=== PATIENT | female | born 1960 | race Caucasian/White ===

== ENCOUNTER 2016-11-17 06:58 | Emergency (ER) | payer MEDICARE, MEDICAID ==
[2016-11-17] MEDS ORDERED: 0.9 % SODIUM CHLORIDE 1000ML 1,000 ML IV SCH (07:00)
--- NOTE | 2016-11-17 07:06 | Emergency Department Record ---
History of Present Illness - General Chief Complaint: Shortness of breath Stated Complaint: TAL Time Seen by Provider: 11/17/16 07:00 Source: Patient, EMS Mode of Arrival: EMS Limitations: No limitations - History of Present Illness Initial Comments: 56 yo female presents to ED with a CC of difficulty breathing that began last night, reports wheezing with a history of COPD. Patient reports that she ran out of her albuterol last night, has not been on steroids recently. Patient denies fevers, chills, or productive cough symptoms. Patient denies fevers, chills, or recent illness. Patient received duoneb and solumedrol [employer]. MD Complaint: Anxiety, Shortness of breath Onset/Timin -: Days(s) Severity: Moderate Consistency: Intermittent Improves With: Bronchodilators Worsens With: Exertion Known History Of: COPD Treatments Prior to Arrival: Bronchodilator, Other (IV solumedrol) - Related Data Home Oxygen Therapy: Yes Home Oxygen Amount: 3 Liters Home Medications Medication Instructions Recorded Confirmed Last Taken Ascorbic Acid [Vitamin C] 500 mg PO ASDIR 08/14/15 05/20/16 Unknown Cholecalciferol (Vitamin D3) 2,000 unit PO DAILY cap 08/14/15 05/20/16 Unknown [Vitamin D3] Mv,Calcium,Min/Iron/Folic/Vitk 1 each PO DAILY tab 08/14/15 05/20/16 Unknown [Multi For Her Tablet] Acetaminophen [Tylenol Extra 1,000 mg PO DAILY tab 09/30/15 05/20/16 Unknown Strength] Diphenhydramine HCl [Benadryl] 25 mg PO ASDIR cap 09/30/15 05/20/16 Unknown Previous Rx's Medication Instructions Recorded Prednisone [Prednisone 20Mg] 20 mg PO TID #15 tab 11/17/16 Allergies Allergy/AdvReac Type Severity Reaction Status Date / Time No Known Drug Allergies Allergy Unverified 06/26/16 15:02 Review of Systems Constitutional: Denies: Chills, Fever, Malaise, Night sweats Eyes: Denies: Eye discharge, Eye pain ENT: Denies: Congestion, Ear pain, Epistaxis Respiratory: Reports: Cough, Dyspnea, Wheezes Cardiovascular: Reports: Dyspnea on exertion. Denies: Chest pain Endocrine: Denies: Fatigue, Heat or cold intolerance Gastrointestinal: Denies: Abdominal pain, Nausea, Vomiting Genitourinary: Denies: Dysuria, Frequency Musculoskeletal: Denies: Arthralgia, Back pain Skin: Denies: Bruising, Change in color Neurological: Denies: Abnormal gait, Confusion, Headache, Seizure Psychiatric: Reports: Anxiety Hematological/Lymphatic: Denies: Anemia, Blood Clots Past Medical History - SOCIAL HISTORY Smoking Status: Former smoker - RESPIRATORY Hx Respiratory Disorders: Yes Hx Bronchitis: Yes (currently) Hx COPD: Yes Hx Dyspnea: Yes - CARDIOVASCULAR Hx Cardio Disorders: Yes Hx Hypertension: Yes - NEURO Hx Neuro Disorders: Yes Hx Headaches: Yes - GI Hx GI Disorders: Yes Hx Abdominal Pain: Yes Hx Reflux: Yes Hx Irritable Bowel: Yes - Hx Genitourinary Disorders: No Comment:: stress incont. - ENDOCRINE Hx Endocrine Disorders: No Hx Diabetes: No Hx Thyroid Disease: No - MUSCULOSKELETAL Hx Musculoskeletal Disorders: No - PSYCH Hx Psych Problems: Yes Hx Anxiety: Yes Hx Depression: Yes - HEMATOLOGY/ONCOLOGY Hx Hematology/Oncology Disorders: No Family Medical History Family Hx Comment (NOT TO BE USED IN PLACE OF ITEMS BELOW): Migraines. Thyroid - Siblings Hx HTN: Father Hx Resp Disorders: Father, Grandparents Physical Exam - General General Appearance: Alert, Oriented x3, Cooperative, Anxious Limitations: No limitations - Head Head exam: Atraumatic, Normocephalic, Normal inspection Head exam detail: negative: Abrasion, Contusion, Holland's sign, General tenderness, Hematoma, Laceration - Eye Eye exam: Normal appearance. negative: Conjunctival injection, Periorbital swelling, Periorbital tenderness, Scleral icterus - ENT Ear exam: negative: Auricular hematoma, Auricular trauma Nasal Exam: negative: Active bleeding, Discharge, Dried blood, Foreign body Mouth exam: negative: Drooling, Laceration, Muffled voice, Tongue elevation - Neck Neck exam: Normal inspection. negative: Meningismus, Tenderness - Respiratory Respiratory exam: Respiratory distress, Wheezes (very mild wheezes bilaterally) . negative: Rales, Rhonchi, Stridor - Cardiovascular Cardiovascular Exam: Regular rate, Normal rhythm, Normal heart sounds - GI/Abdominal GI/Abdominal exam: Soft. negative: Rebound, Rigid, Tenderness - Rectal Rectal exam: Deferred - exam: Deferred - Extremities Extremities exam: Normal inspection. negative: Pedal edema, Tenderness - Back Back exam: Denies: CVA tenderness (R), CVA tenderness (L) - Neurological Neurological exam: Alert, Normal gait, Oriented X3 - Psychiatric Psychiatric exam: Normal affect, Normal mood - Skin Skin exam: Normal color. negative: Abrasion Type of lesion: negative: abrasion Course - Reevaluation(s) Reevaluation #1: 11/17/16 07:24 EKG: Diffuse artifact present, NSR 95 Normal axis, normal intervals Q waves V1, V2, no acute ST-T wave changes are present. Reevaluation #2: 11/17/16 07:42 Labs reviewed, WBC 18.3 with 87% Neutrophils, Potassium 2.7 (K-lyte ordered), CO2 34.8. Labs are otherwise grossly unremarkable for an acute process. Reevaluation #3: 11/17/16 08:35 CXR pending. Patient reassessed, currently sleeping; pulse 80's, biox 100% on her baseline 3L NC. Awaiting radiology interpretation. Reevaluation #4: 11/17/16 08:50 CXR: Findings c/w COPD, nothing acute. Patient was updated on all results, patient is resting comfortably, and appears stable for discharge at this time. Medical Decision Making - Lab Data Result diagrams: 11/17/16 07:04 11/17/16 07:04 Disposition Disposition: Discharge Clinical Impression: Chronic obstructive pulmonary disease with acute exacerbation, Hypokalemia Disposition: Home, Self-Care Condition: (2) Stable Instructions: Dyspnea (ED) Additional Instructions: Return to ED if your symptoms worsen or if you have any concerns. Prednisone as directed. Follow-up with you family doctor in 3-5 days as directed. Prescriptions: Prednisone [Prednisone 20Mg] 20 mg PO TID #15 tab Forms: Patient Portal Access Time of Disposition: 08:38
[2016-11-17 07:11] LABS: HEMATOCRIT 44.6 % (35.0-47.0); HEMOGLOBIN 14.2 gm/dl (11.6-16.0); MEAN CELL VOLUME 103.2 fl (81-97); MEAN CORPUSCULAR HEMOGLOBIN 32.9 pg (27-33); MEAN CORPUSCULAR HGB CONC 31.8 g/dl (32-36); MEAN PLATELET VOLUME 8.6 fl (7.4-10.4); PLATELET COUNT 471 K/uL (130-400); RED BLOOD COUNT 4.32 M/uL (3.80-5.40); RED CELL DISTRIBUTION WIDTH 13.2 % (11.5-14.5); WHITE BLOOD COUNT W/O DIFF 18.3 K/uL (4.2-12.2)
[2016-11-17 07:23] LABS: ALB/GLOB RATIO 1.2 (1.1-1.8); ALBUMIN 3.8 gm/dL (3.5-5.0); ALKALINE PHOSPHATASE 115 U/L (38-126); ALT/SGPT 25 U/L (9-52); ANION GAP 7.2 (7-16); AST/SGOT 36 U/L (14-36); BLOOD UREA NITROGEN 6 mg/dL (7-17); CARBON DIOXIDE 34.8 mmol/L (22-30); CREATININE 0.5 mg/dL (0.52-1.04); EST GLOMERULAR FILTRATION RATE > 60 ml/min; GLUCOSE,RANDOM 132 mg/dL (70-110)
[2016-11-17] MEDS ORDERED: POTASSIUM BICARB./CIT AC 25 MEQ EFF.TAB PO STA (07:42)
[2016-11-17] MEDS ORDERED: IPRATROPIUM/ALBUTEROL (0.5MG/3MG) NEB INH ONE (10:47)
[2016-11-17] MEDS ORDERED: ACETAMINOPHEN 325 MG TAB PO ONE (12:51)
--- NOTE | 2016-11-20 09:13 | RADIOLOGY REPORT ---
EXAM: CHEST, TWO VIEWS HISTORY: ACUTE DIFFICULTY BREATHING, LOSS OF URINARY BLADDER CONTROL. TECHNIQUE: Two views of the chest were obtained. Comparison: Chest x-ray 05/20/16. FINDINGS: The lungs are hyperinflated although are otherwise clear. The cardiac silhouette is not enlarged. The diaphragm is flattened. The osseous structures are unremarkable. IMPRESSION: EMPHYSEMA. NO ACUTE PROCESS WITH NO CHANGE. JOB NUMBER: [id number] MTDD
== END 2016-11-17 14:08 | disposition home or self-care (01) ==
LOC: ER 06:58
DX: J44.1 Chronic obstructive pulmonary disease with (acute) exacerbation (principal); Z87.891 Personal history of nicotine dependence; E87.6 Hypokalemia; I10 Essential (primary) hypertension
CPT/HCPCS: 71020; 80053; 85027; 93005; 93010; 99284; J7030

== ENCOUNTER 2017-01-05 15:58 | Emergency (ER) | payer MEDICARE, MEDICAID | END 2017-01-05 16:13 | disposition left against medical advice (07) | LOC: ER 15:58 | DX: Z53.20 Procedure and treatment not carried out because of patient's decision for unspecified reasons (principal) ==

== ENCOUNTER 2017-01-05 20:00 | Emergency (ER) | payer MEDICARE, MEDICAID ==
--- NOTE | 2017-01-05 20:55 | Emergency Department Record ---
History of Present Illness - General Chief complaint: Extremity Problem Stated complaint: L GREAT TOE INJURY Time Seen by Provider: 01/05/17 20:49 Source: Patient Mode of Arrival: Ambulatory Limitations: No limitations - History of Present Illness Initial comments: 56 yo female presents to the ED for evaluation of left great toe injury last night. Patient reports that she accidentally kicked her bird cage last night resulting in her injury. Patient reports increased pain and bruising to the affected left great toe. Patient reports that she was in [facility] earlier today, had radiographs performed but could not stay for her results as she was low on oxygen. MD Complaint: Extremity pain, Extremity swelling Onset/Timin -: Days(s) Location: Left, Other Severity scale (1-10): 8 Quality: Aching Consistency: Constant, Getting worse Improves with: Nothing Worsens with: Nothing Associated Symptoms: Denies other symptoms - Related Data Home Medications Medication Instructions Recorded Confirmed Last Taken Ascorbic Acid [Vitamin C] 500 mg PO ASDIR 08/14/15 05/20/16 Unknown Cholecalciferol (Vitamin D3) 2,000 unit PO DAILY cap 08/14/15 05/20/16 Unknown [Vitamin D3] Mv,Calcium,Min/Iron/Folic/Vitk 1 each PO DAILY tab 08/14/15 05/20/16 Unknown [Multi For Her Tablet] Acetaminophen [Tylenol Extra 1,000 mg PO DAILY tab 09/30/15 05/20/16 Unknown Strength] Diphenhydramine HCl [Benadryl] 25 mg PO ASDIR cap 09/30/15 05/20/16 Unknown Allergies Allergy/AdvReac Type Severity Reaction Status Date / Time No Known Drug Allergies Allergy Unverified 01/05/17 16:12 Travel Screening - Travel/Exposure Within Last 30 Days Have you traveled within the last 30 days?: No Review of Systems Constitutional: Denies: Chills, Fever, Malaise, Night sweats Eyes: Denies: Eye discharge, Eye pain ENT: Denies: Congestion, Ear pain, Epistaxis Respiratory: Denies: Cough, Dyspnea Cardiovascular: Denies: Chest pain, Dyspnea on exertion Endocrine: Denies: Fatigue, Heat or cold intolerance Gastrointestinal: Denies: Nausea, Vomiting Genitourinary: Denies: Incontinence, Retention Musculoskeletal: Denies: Arthralgia, Back pain, Gout, Joint swelling Skin: Denies: Bruising, Change in color Neurological: Denies: Abnormal gait, Confusion, Headache Psychiatric: Denies: Anxiety Hematological/Lymphatic: Denies: Anemia, Blood Clots Past Medical History - SOCIAL HISTORY Smoking Status: Former smoker Alcohol Use: None Drug Use: None - RESPIRATORY Hx Respiratory Disorders: Yes Hx Bronchitis: Yes (currently) Hx COPD: Yes Hx Dyspnea: Yes - CARDIOVASCULAR Hx Cardio Disorders: Yes Hx Hypertension: Yes - NEURO Hx Neuro Disorders: Yes Hx Headaches: Yes - GI Hx GI Disorders: Yes Hx Abdominal Pain: Yes Hx Reflux: Yes Hx Irritable Bowel: Yes - Hx Genitourinary Disorders: No Comment:: stress incont. - ENDOCRINE Hx Endocrine Disorders: No Hx Diabetes: No Hx Thyroid Disease: No - MUSCULOSKELETAL Hx Musculoskeletal Disorders: No - PSYCH Hx Psych Problems: Yes Hx Anxiety: Yes Hx Depression: Yes - HEMATOLOGY/ONCOLOGY Hx Hematology/Oncology Disorders: No Family Medical History Any Significant Family History?: Yes Family Hx Comment (NOT TO BE USED IN PLACE OF ITEMS BELOW): Migraines. Thyroid - Siblings Hx HTN: Father Hx Resp Disorders: Father, Grandparents Physical Exam - General General Appearance: Alert, Oriented x3, Cooperative, No acute distress Limitations: No limitations - Head Head exam: Atraumatic, Normocephalic, Normal inspection Head exam detail: negative: Abrasion, Contusion, Holland's sign, General tenderness, Hematoma, Laceration - Eye Eye exam: Normal appearance. negative: Conjunctival injection, Periorbital swelling, Periorbital tenderness, Scleral icterus - ENT Ear exam: negative: Auricular hematoma, Auricular trauma Nasal Exam: negative: Active bleeding, Discharge, Dried blood, Foreign body Mouth exam: negative: Drooling, Laceration, Muffled voice, Tongue elevation - Neck Neck exam: Normal inspection. negative: Meningismus, Tenderness - Respiratory Respiratory exam: Normal lung sounds bilaterally. negative: Respiratory distress, Rhonchi, Stridor, Wheezes - Cardiovascular Cardiovascular Exam: Regular rate, Normal rhythm, Normal heart sounds - GI/Abdominal GI/Abdominal exam: Soft. negative: Rebound, Rigid, Tenderness - Rectal Rectal exam: Deferred - exam: Deferred - Extremities Extremities exam: Tenderness, Other (STS and ecchymosis to the left great toe on examination, strong DPP is present, no other area of injury noted on examination). negative: Pedal edema - Back Back exam: Denies: CVA tenderness (R), CVA tenderness (L) - Neurological Neurological exam: Alert, Oriented X3 - Psychiatric Psychiatric exam: Normal affect, Normal mood - Skin Skin exam: Normal color. negative: Abrasion Type of lesion: negative: abrasion Course Vital Signs 01/05/17 20:19 Temperature 99.1 F Pulse Rate [ 104 H Pulse Ox Probe] Respiratory 24 Rate Blood Pressure 117/79 [Left Arm] Pulse Ox 96 - Reevaluation(s) Reevaluation #1: 01/05/17 20:53 Left great toe: minimally displaced fracture of the distal phalanx of the great toe Patient was updated on her radiograph results, will place in a post-op shoe for support, and patient appears stable for discharge at this time. Opiate analgesia was considered however given the patient's severe COPD and history of respiratory failure is felt to be of high risk. 01/05/17 20:56 Disposition Disposition: Discharge Clinical Impression: Fractured great toe Qualifiers: Encounter type: subsequent encounter Fracture type: closed Phalanx: distal Fracture alignment: nondisplaced Laterality: left Fracture healing: with routine healing Qualified Code(s): S92.425D - Nondisplaced fracture of distal phalanx of left great toe, subsequent encounter for fracture with routine healing Disposition: Home, Self-Care Condition: (2) Stable Instructions: Toe Fracture (ED) Additional Instructions: Return to ED if your symptoms worsen or if you have any concerns. Post-op shoe as directed. Follow-up with your family doctor in 5-7 days for further evaluation and reassessment. Forms: Patient Portal Access Time of Disposition: 20:55 Quality - Quality Measures Quality Measures: N/A - Blood Pressure Screening Blood Pressure Classification: Normal BP Reading Systolic Measurement: 117 Diastolic Measurement: 79 Screening for High Blood Pressure: < Normal BP, F/U Not Required > [G8783] Normal BP Follow-up Interventions: No follow-up required
== END 2017-01-05 21:29 | disposition home or self-care (01) ==
LOC: ER 20:00
DX: S92.425A Nondisplaced fracture of distal phalanx of left great toe, initial encounter for closed fracture (principal); W22.8XXA Striking against or struck by other objects, initial encounter
CPT/HCPCS: 73660; 99282

== ENCOUNTER 2017-02-05 14:01 | Emergency (ER) | payer MEDICARE, MEDICAID ==
[2017-02-05] MEDS ORDERED: LORAZEPAM 2 MG/ML VIAL IV ONE ×2 (14:10→16:20)
[2017-02-05] MEDS ORDERED: 0.9 % SODIUM CHLORIDE 1000ML 1,000 ML IV SCH (14:15)
[2017-02-05 14:22] LABS: HEMATOCRIT 42.5 % (35.0-47.0); HEMOGLOBIN 14.6 gm/dl (11.6-16.0); MEAN CELL VOLUME 108.4 fl (81-97); MEAN CORPUSCULAR HEMOGLOBIN 37.2 pg (27-33); MEAN CORPUSCULAR HGB CONC 34.4 g/dl (32-36); MEAN PLATELET VOLUME 8.9 fl (7.4-10.4); PLATELET COUNT 509 K/uL (130-400); RED BLOOD COUNT 3.92 M/uL (3.80-5.40); RED CELL DISTRIBUTION WIDTH 14.4 % (11.5-14.5)
[2017-02-05 14:26] LABS: WHITE BLOOD COUNT W/O DIFF 25.3 K/uL (4.2-12.2)
[2017-02-05 14:34] LABS: PLATELET ESTIMATE NORMAL (NORMAL)
[2017-02-05] MEDS ORDERED: DILTIAZEM 25MG/5ML VIAL IV ONE (14:35)
[2017-02-05 14:36] LABS: BLOOD UREA NITROGEN 21 mg/dL (7-17); CREATININE 1.2 mg/dL (0.52-1.04); EST GLOMERULAR FILTRATION RATE 50 ml/min; GLUCOSE,RANDOM 130 mg/dL (70-110)
[2017-02-05 14:39] LABS: CARBON DIOXIDE < 5.0 mmol/L (22-30)
[2017-02-05] MEDS ORDERED: IPRATROPIUM/ALBUTEROL (0.5MG/3MG) NEB INH ONE (14:45)
--- NOTE | 2017-02-05 14:45 | Emergency Department Record ---
History of Present Illness - General Chief Complaint: Difficulty Breathing Stated Complaint: TAL Time Seen by Provider: 02/05/17 14:10 Source: Patient, RN notes reviewed Mode of Arrival: EMS - History of Present Illness Initial Comments: hyperventilating and short of breath with heart rate of 150 and she has home oxygen 3 liters per minute and history of COPD and anxiety. She has become progressively more SOB over 3 days with cough and clear sputum. MD Complaint: Shortness of breath Onset/Timin -: Days(s) Improves With: Nothing Worsens With: Nothing Known History Of: COPD Associated Symptoms: Cough, Nausea/vomiting Treatments Prior to Arrival: Bronchodilator, Oxygen - Related Data Home Oxygen Therapy: Yes Home Oxygen Amount: 3 Liters Home Medications Medication Instructions Recorded Confirmed Last Taken Ascorbic Acid [Vitamin C] 500 mg PO ASDIR 08/14/15 02/05/17 01/07/17 Cholecalciferol (Vitamin D3) 2,000 unit PO DAILY cap 08/14/15 02/05/17 01/07/17 [Vitamin D3] Mv,Calcium,Min/Iron/Folic/Vitk 1 each PO DAILY tab 08/14/15 02/05/17 01/07/17 [Multi For Her Tablet] Acetaminophen [Tylenol Extra 1,000 mg PO DAILY tab 09/30/15 02/05/17 01/07/17 Strength] Diphenhydramine HCl [Benadryl] 25 mg PO ASDIR cap 09/30/15 02/05/17 01/07/17 Previous Rx's Medication Instructions Recorded Hydrocodone/Acetaminophen [[place] 0.5 each PO QID #7 tablet 01/07/17 5-325 Tablet] Allergies Allergy/AdvReac Type Severity Reaction Status Date / Time No Known Drug Allergies Allergy Verified 02/05/17 14:13 Travel Screening - Travel/Exposure Within Last 30 Days Have you traveled within the last 30 days?: No Review of Systems Reviewed: No additional complaints except as noted below Constitutional: Reports: As per HPI. Denies: Chills, Fever, Malaise, Night sweats, Weakness, Weight change Eyes: Reports: As per HPI. Denies: Eye discharge, Eye pain, Photophobia, Vision change ENT: Reports: As per HPI. Denies: Congestion, Dental pain, Ear pain, Epistaxis , Hearing loss, Throat pain Respiratory: Reports: As per HPI, Dyspnea. Denies: Cough, Hemoptysis, Stridor, Wheezes Cardiovascular: Reports: As per HPI. Denies: Arrhythmia, Chest pain, Dyspnea on exertion, Edema, Murmurs, Orthopnea, Palpitations, Paroxysmal nocturnal dyspnea, Rheumatic Fever, Syncope Endocrine: Reports: As per HPI. Denies: Fatigue, Heat or cold intolerance, Polydipsia, Polyuria Gastrointestinal: Reports: As per HPI. Denies: Abdominal pain, Constipation, Diarrhea, Hematemesis, Hematochezia, Melena, Nausea, Vomiting Genitourinary: Reports: As per HPI. Denies: Abnormal menses, Discharge, Dyspareunia, Dysuria, Frequency, Hematuria, Incontinence, Retention, Urgency Musculoskeletal: Reports: As per HPI. Denies: Arthralgia, Back pain, Gout, Joint swelling, Myalgia, Neck pain Skin: Reports: As per HPI. Denies: Bruising, Change in color, Change in hair/ nails, Lesions, Pruritus, Rash Neurological: Reports: As per HPI. Denies: Abnormal gait, Confusion, Headache, Numbness, Paresthesias, Seizure, Tingling, Tremors, Vertigo, Weakness Psychiatric: Reports: As per HPI. Denies: Anxiety, Auditory hallucinations, Depression, Homicidal thoughts, Suicidal thoughts, Visual hallucinations Hematological/Lymphatic: Reports: As per HPI. Denies: Anemia, Blood Clots, Easy bleeding, Easy bruising, Swollen glands Past Medical History - SOCIAL HISTORY Smoking Status: Former smoker Alcohol Use: None Drug Use: None - RESPIRATORY Hx Respiratory Disorders: Yes Hx Bronchitis: Yes Hx COPD: Yes Hx Dyspnea: Yes - CARDIOVASCULAR Hx Cardio Disorders: Yes Hx Hypertension: Yes - NEURO Hx Neuro Disorders: Yes Hx Headaches: Yes - GI Hx GI Disorders: Yes Hx Abdominal Pain: Yes Hx Reflux: Yes Hx Irritable Bowel: Yes - Hx Genitourinary Disorders: No Comment:: stress incont. - ENDOCRINE Hx Endocrine Disorders: No Hx Diabetes: No Hx Thyroid Disease: No - MUSCULOSKELETAL Hx Musculoskeletal Disorders: No - PSYCH Hx Psych Problems: Yes Hx Anxiety: Yes Hx Depression: Yes - HEMATOLOGY/ONCOLOGY Hx Hematology/Oncology Disorders: No Family Medical History Any Significant Family History?: Yes Family Hx Comment (NOT TO BE USED IN PLACE OF ITEMS BELOW): Migraines. Thyroid - Siblings Hx HTN: Father Hx Resp Disorders: Father, Grandparents Physical Exam - General General Appearance: Alert, Oriented x3, Cooperative, Moderate distress - Head Head exam: Normal inspection - Eye Eye exam: Normal appearance, PERRL Pupils: Normal accommodation - ENT ENT exam: Normal exam, Mucous membranes moist, Normal external ear exam, Normal orophraynx, TM's normal bilaterally Ear exam: Normal external inspection. negative: External canal tenderness Nasal Exam: Normal inspection. negative: Discharge, Sinus tenderness Mouth exam: Normal external inspection, Tongue normal Teeth exam: Normal inspection. negative: Dental caries Throat exam: Normal inspection. negative: Tonsillar erythema, Tonsillar exudate - Neck Neck exam: Normal inspection, Full ROM. negative: Tenderness - Respiratory Respiratory exam: Wheezes. negative: Respiratory distress - Cardiovascular Cardiovascular Exam: Normal rhythm, Normal heart sounds, Tachycardia - GI/Abdominal GI/Abdominal exam: Soft, Normal bowel sounds. negative: Tenderness - Rectal Rectal exam: Deferred - exam: Deferred - Extremities Extremities exam: Normal inspection, Full ROM, Normal capillary refill. negative: Tenderness - Back Back exam: Reports: Normal inspection, Full ROM. Denies: Muscle spasm, Rash noted, Tenderness - Neurological Neurological exam: Alert, Normal gait, Oriented X3, Reflexes normal - Psychiatric Psychiatric exam: Normal affect, Normal mood - Skin Skin exam: Dry, Intact, Normal color, Warm Course Vital Signs 02/05/17 14:13 Temperature 97.9 F Pulse Rate 156 H Respiratory 28 H Rate Blood Pressure 128/71 Pulse Ox 100 - Reevaluation(s) Reevaluation #1: Discussed with Dr. Vaca at [facility] service and he accepted the admission. 02/05/17 17:37 Medical Decision Making - Lab Data Result diagrams: 02/05/17 13:53 02/05/17 13:53 Lab Results 02/05/17 02/05/17 02/05/17 Range/Units 13:53 13:53 13:53 WBC 25.3 H* (4.2-12.2) K/uL RBC 3.92 (3.80-5.40) M/uL Hgb 14.6 (11.6-16.0) gm/dl Hct 42.5 (35.0-47.0) % MCV 108.4 H (81-97) fl MCH 37.2 H (27-33) pg MCHC 34.4 (32-36) g/dl RDW 14.4 (11.5-14.5) % Plt Count 509 H (130-400) K/uL MPV 8.9 (7.4-10.4) fl Neutrophils % 86.0 H (47-80) % Eosinophils % Not Reportable Basophils % Not Reportable Lymphocytes 5.0 L (16-45) % Monocytes 9.0 (0-9) % Platelet Estimate Normal (NORMAL) RBC Morphology Normal APTT 37.90 (24.5-39.1) SECONDS Sodium 141 (136-145) mmol/L Potassium 5.6 H (3.5-5.1) mmol/L Chloride 105 (98-107) mmol/L Carbon Dioxide < 5.0 L (22-30) mmol/L Anion Gap 31.0 H (7-16) BUN 21 H (7-17) mg/dL Creatinine 1.2 H (0.52-1.04) mg/dL Estimated GFR 50 ml/min Random Glucose 130 H (70-110) mg/dL Calcium 9.6 (8.5-10.1) mg/dL Disposition Clinical Impression: Bronchitis, COPD (chronic obstructive pulmonary disease) with acute bronchitis , Tachycardia, Hyperthyroidism Sepsis Qualifiers: Sepsis type: sepsis due to unspecified organism Qualified Code(s): A41.9 - Sepsis, unspecified organism Disposition: [facility] Transfer Forms: Patient Portal Access Time of Disposition: 17:55 Quality - Quality Measures Quality Measures: N/A - Blood Pressure Screening Does Patient Have Any of the Following: No Blood Pressure Classification: Pre-Hypertensive BP Reading Systolic Measurement: 128 Diastolic Measurement: 71 Screening for High Blood Pressure: < Pre-Hypertensive BP, F/U Documented > [ G8950] Pre-Hypertensive Follow-up Interventions: Referral to alternative/primary care provider.
[2017-02-05 14:48] LABS: CKMB 5.6 ug/L (0-6)
[2017-02-05 14:49] LABS: TROPONIN I < 0.012 ng/mL (0.00-0.034)
[2017-02-05 15:07] LABS: THYROID STIMULATING HORMONE 0.29 uIU/ml (0.465-4.68)
[2017-02-05] MEDS ORDERED: IPRATROPIUM BR 0.02% NEB (0.5MG) INH ONE (15:11)
[2017-02-05] MEDS ORDERED: ALBUTEROL SULFATE (0.083%) 2.5 MG/3 ML NEB INH ONE (15:28)
[2017-02-05] MEDS ORDERED: ACETAMINOPHEN 325 MG TAB PO ONE (16:17)
[2017-02-05] MEDS ORDERED: 0.9 % SODIUM CHLORIDE 1000ML 1,000 ML IV PRN (16:17)
[2017-02-05 16:42] LABS: AMPHETAMINE SCREEN URINE NOT DETECTED; BARBITURATE SCREEN URINE NOT DETECTED; BENZODIAZEPINE SCREEN URINE NOT DETECTED; COCAINE SCREEN URINE NOT DETECTED; METHADONE SCREEN URINE NOT DETECTED; METHAMPHETAMINE SCREEN NOT DETECTED; OPIATE SCREEN URINE NOT DETECTED; OXYCODONE SCREEN URINE NOT DETECTED; PHENCYCLIDINE SCREEN URINE NOT DETECTED; PROPOXYPHENE SCREEN URINE NOT DETECTED; THC SCREEN URINE NOT DETECTED; TRICYCLIC ANTIDEPRESSANT SCRN NOT DETECTED
[2017-02-05 16:58] LABS: URINE APPEARANCE CLEAR; URINE BILIRUBIN SMALL (NEGATIVE); URINE BLOOD MODERATE (NEGATIVE); URINE COLOR YELLOW; URINE GLUCOSE (UA) NEGATIVE (NEGATIVE); URINE LEUKOCYTE ESTERASE NEGATIVE (NEGATIVE); URINE NITRITE NEGATIVE (NEGATIVE); URINE UROBILINOGEN 0.2 E.U./dL (0.20 - 1.00)
[2017-02-05 16:59] LABS: URINE KETONE 160 mg/dL (NEGATIVE)
[2017-02-05 17:01] LABS: URINE BACTERIA NONE SEEN; URINE WBC NONE SEEN (0-2/hpf)
[2017-02-05] MEDS ORDERED: METHYLPREDNISOLONE PF 125MG/VIAL IVP ONE (17:19)
[2017-02-05] MEDS ORDERED: AZITHROMYCIN 500 MG TABLET PO ONE (17:25)
[2017-02-05] MEDS ORDERED: CEFTRIAXONE SODIUM 2 GM in 0.9 % SODIUM CHLORIDE 100ML 100 ML IVPB ONE (17:25)
[2017-02-05 20:25] LABS: BILIRUBIN,DIRECT 0.7 mg/dL (0-0.3); BILIRUBIN,TOTAL 0.84 mg/dL (0.2-1.3)
[2017-02-05 20:27] LABS: ACETAMINOPHEN < 10.0 ug/mL (10.0-30.0); SALICYLATE < 1.0 mg/dL (2.8-20.0)
[2017-02-05 20:46] LABS: TOTAL PROTEIN 8.6 gm/dL (6.3-8.2)
--- NOTE | 2017-02-08 14:08 | RADIOLOGY REPORT ---
EXAM: CHEST, SINGLE VIEW HISTORY: CHEST PAIN. TECHNIQUE: A single view of the chest was obtained. Comparison: 11/17/16. FINDINGS: The heart size is normal. The lungs garrett are clear. No infiltrate or pleural effusion. The osseous structures are normal. IMPRESSION: NEGATIVE CHEST EXAMINATION. JOB NUMBER: [id number] MTDD
== END 2017-02-05 19:22 | disposition short-term general hospital (02) ==
LOC: ER 14:01
DX: A41.9 Sepsis, unspecified organism (principal); J44.9 Chronic obstructive pulmonary disease, unspecified; J20.9 Acute bronchitis, unspecified; R11.2 Nausea with vomiting, unspecified; R05 Cough; R51 Headache; R00.0 Tachycardia, unspecified; E05.90 Thyrotoxicosis, unspecified without thyrotoxic crisis or storm; I10 Essential (primary) hypertension; Z87.891 Personal history of nicotine dependence; Z79.899 Other long term (current) drug therapy
CPT/HCPCS: 99285 ×2; 96376; 96365; 96375; 84132; 85730; 80076; 82553; 84484; 80048; 81001; 84443; 80305; 85027; 71010; 94640 ×2; 93005; 93010; G0480 ×3; J2060; 80320; 80329; J2930; J7030; J7613

== ENCOUNTER 2017-03-18 11:42 | Emergency (ER) | payer MEDICARE, MEDICAID ==
--- NOTE | 2017-03-18 11:49 | Emergency Department Record ---
History of Present Illness - General Stated Complaint: SHORT OF BREATH Time Seen by Provider: 03/18/17 11:45 Source: Patient Mode of Arrival: Ambulatory Limitations: No limitations - History of Present Illness Initial Comments: 57 yo female presents with gradually increasing shortness of breath the last several days with cough. The cough is progressive. The patient has known COPD and she is on 3 liters nasal cannula at home. [place] [facility] [place] denies any chest pain. She has had a history of PE as well. She is on Eliquis currently. 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 The patient reports she has been without her mediations for about 2 days. Her last treatment was Wednesday. She does have a prescription ready at the pharmacy. MD Complaint: Cough, Shortness of breath -: Days(s) Severity: Moderate Quality: Other Consistency: Constant Improves With: Bronchodilators Worsens With: Coughing Known History Of: COPD Context: Recent URI Associated Symptoms: Cough Treatments Prior to Arrival: Bronchodilator - Related Data Home Medications Medication Instructions Recorded Confirmed Last Taken Umeclidinium Brm/Vilanterol Tr 1 each IH DAILY 03/18/17 03/18/17 03/18/17 [Anoro Ellipta 62.5-25 Mcg INH] Previous Rx's Medication Instructions Recorded Azithromycin [Zithromax] 250 mg PO DAILY #4 tab 03/18/17 Prednisone [Prednisone 20Mg] 20 mg PO BID #10 tab 03/18/17 Allergies Allergy/AdvReac Type Severity Reaction Status Date / Time No Known Drug Allergies Allergy Verified 02/05/17 14:13 Review of Systems Constitutional: Denies: Chills, Fever, Malaise, Weakness Eyes: Denies: Eye discharge, Eye pain, Photophobia, Vision change ENT: Denies: Congestion, Throat pain Respiratory: Reports: Cough, Dyspnea. Denies: Hemoptysis, Stridor, Wheezes Cardiovascular: Denies: Arrhythmia, Chest pain, Palpitations, Syncope Endocrine: Denies: Fatigue, Polydipsia, Polyuria Gastrointestinal: Denies: Abdominal pain, Constipation, Nausea, Vomiting Genitourinary: Denies: Discharge, Dysuria, Retention, Urgency Musculoskeletal: Denies: Arthralgia, Back pain, Myalgia, Neck pain Skin: Denies: Bruising, Change in color, Rash Neurological: Denies: Confusion, Headache, Numbness, Weakness Psychiatric: Denies: Anxiety Hematological/Lymphatic: Denies: Blood Clots, Easy bleeding, Easy bruising, Swollen glands Past Medical History - SOCIAL HISTORY Smoking Status: Former smoker Drug Use: None - RESPIRATORY Hx Respiratory Disorders: Yes Hx Bronchitis: Yes Hx COPD: Yes Hx Dyspnea: Yes - CARDIOVASCULAR Hx Cardio Disorders: Yes Hx Hypertension: Yes - NEURO Hx Neuro Disorders: Yes Hx Headaches: Yes - GI Hx GI Disorders: Yes Hx Abdominal Pain: Yes Hx Reflux: Yes Hx Irritable Bowel: Yes - Hx Genitourinary Disorders: No Comment:: stress incont. - ENDOCRINE Hx Endocrine Disorders: No Hx Diabetes: No Hx Thyroid Disease: No - MUSCULOSKELETAL Hx Musculoskeletal Disorders: No - PSYCH Hx Psych Problems: Yes Hx Anxiety: Yes Hx Depression: Yes - HEMATOLOGY/ONCOLOGY Hx Hematology/Oncology Disorders: No Family Medical History Family Hx Comment (NOT TO BE USED IN PLACE OF ITEMS BELOW): Migraines. Thyroid - Siblings Hx HTN: Father Hx Resp Disorders: Father, Grandparents Physical Exam - General General Appearance: Alert, Oriented x3, Cooperative, No acute distress Limitations: No limitations - Head Head exam: Normal inspection - Eye Eye exam: Normal appearance, PERRL. negative: Periorbital swelling - ENT ENT exam: Normal exam, Mucous membranes moist Ear exam: Normal external inspection Nasal Exam: Normal inspection. negative: Discharge Mouth exam: Normal external inspection - Neck Neck exam: Normal inspection, Full ROM. negative: Lymphadenopathy, Tenderness - Respiratory Respiratory exam: Accessory muscle use, Decreased breath sounds, Prolonged expiratory, Rhonchi, Wheezes. negative: Normal lung sounds bilaterally, Respiratory distress, Stridor - Cardiovascular Cardiovascular Exam: Normal rhythm, Normal heart sounds, Tachycardia. negative : Regular rate Peripheral Pulses: 2+: Radial (R), Radial (L) - GI/Abdominal GI/Abdominal exam: Soft. negative: Tenderness - Rectal Rectal exam: Deferred - exam: Deferred - Extremities Extremities exam: Pedal edema (left greater than right, this is chronic per the pateint) - Back Back exam: Reports: Normal inspection, Full ROM. Denies: Muscle spasm, Rash noted, Tenderness - Neurological Neurological exam: Alert, Normal gait, Oriented X3 - Psychiatric Psychiatric exam: Normal affect, Normal mood. negative: Agitated, Anxious - Skin Skin exam: Dry, Intact, Normal color, Warm Course - Reevaluation(s) Reevaluation #1: EKG 11:44 Sinus tachycardia, rate 112, intervals normal, axis normal, poor R wave progression. No other acute changes. 03/18/17 12:00 03/18/17 12:48 The CXR was reviewed No acute changes The CBC and CMP were reviewed The CBC demonstrates a chronically elevated WBC count. Today is 19 with prior or 25. She has a chronic anemia No significant acute changes on the CMP. The patient subjectively was much improved after the treatment. 03/18/17 12:54 HR 94 Respiratory effort is comfortable After the treatment she is 96% on her normal 3 liters I explained that being off her Duoneb for 2 days is going to lead to difficulty breathing Now that she has had a treatment she feels greatly improved and comfortable. 03/18/17 13:56 After the second treatment the patient is doing very well and expressed she ready for DC. She has very good air exchange. No dyspnea. We discussed at length reasons to return to the ED Medical Decision Making - Lab Data Result diagrams: 03/18/17 11:47 03/18/17 11:47 Disposition Disposition: Discharge Clinical Impression: COPD (chronic obstructive pulmonary disease) with acute bronchitis Disposition: Home, Self-Care Condition: (1) Good Instructions: COPD (Chronic Obstructive Pulmonary Disease) (ED) Additional Instructions: Return immediately if worse, short of breath, fever, pain or concerns Do not run out of your breathing treatments. If you ever run out return to the ED Continue the Zithromax and Prednisone the next 5 days. Call your doctor today for close followup in the next 4-5 days. Prescriptions: Azithromycin [Zithromax] 250 mg PO DAILY #4 tab Prednisone [Prednisone 20Mg] 20 mg PO BID #10 tab Forms: Patient Portal Access Time of Disposition: 13:56 Quality - Quality Measures Quality Measures: N/A - Blood Pressure Screening Does Patient Have Any of the Following: No Blood Pressure Classification: Pre-Hypertensive BP Reading Systolic Measurement: 121 Diastolic Measurement: 73 Screening for High Blood Pressure: < Pre-Hypertensive BP, F/U Documented > [ [id number]] Pre-Hypertensive Follow-up Interventions: Referral to alternative/primary care provider.
[2017-03-18] MEDS ORDERED: METHYLPREDNISOLONE PF 125MG/VIAL IVP ONE (11:50)
[2017-03-18] MEDS ORDERED: IPRATROPIUM/ALBUTEROL (0.5MG/3MG) NEB INH ONE ×2 (11:50→13:10)
[2017-03-18 12:06] LABS: HEMATOCRIT 35.7 % (35.0-47.0); HEMOGLOBIN 11.4 gm/dl (11.6-16.0); MEAN CELL VOLUME 103.8 fl (81-97); MEAN CORPUSCULAR HEMOGLOBIN 33.1 pg (27-33); MEAN CORPUSCULAR HGB CONC 31.9 g/dl (32-36); MEAN PLATELET VOLUME 8.6 fl (7.4-10.4); PLATELET COUNT 720 K/uL (130-400); RED BLOOD COUNT 3.44 M/uL (3.80-5.40); RED CELL DISTRIBUTION WIDTH 12.6 % (11.5-14.5); WHITE BLOOD COUNT W/O DIFF 19.7 K/uL (4.2-12.2)
[2017-03-18 12:16] LABS: PLATELET ESTIMATE INCREASED (NORMAL)
[2017-03-18 12:18] LABS: INR 0.93; PARTIAL THROMBOPLASTIN TIME 27.3 SECONDS (24.5-39.1)
[2017-03-18 12:31] LABS: ALB/GLOB RATIO 1.2 (1.1-1.8); ALBUMIN 3.7 g/dL (4.0-5.0); ALKALINE PHOSPHATASE 89 U/L (35-104); ALT/SGPT 10 U/L (<33); AST/SGOT 14 U/L (10.0-35.0); BLOOD UREA NITROGEN 7 mg/dL (6-20); CREATININE 0.8 mg/dL (0.5-0.9); EST GLOMERULAR FILTRATION RATE > 60 mL/min; GLUCOSE,RANDOM 148 mg/dL (74-109); TOTAL PROTEIN 6.7 g/dL (6.6-8.7)
[2017-03-18 12:32] LABS: BILIRUBIN,TOTAL < 0.20 mg/dL (0.2-1.0); TROPONIN I < 0.30 ng/mL (0.00-0.300)
[2017-03-18] MEDS ORDERED: AZITHROMYCIN 500 MG TABLET PO ONE (12:47)
--- NOTE | 2017-03-19 14:44 | RADIOLOGY REPORT ---
EXAM: AP CHEST HISTORY: DIFFICULTY IN BREATHING FOR THREE DAYS. HYPOXIA. LEUKOCYTOSIS. TECHNIQUE: AP view of the chest was obtained. Comparison: Chest x-ray 02/05/17. FINDINGS: The lungs are clear. The cardiac silhouette, diaphragm, and osseous structures are unremarkable for age. IMPRESSION: NEGATIVE CHEST EXAMINATION. JOB NUMBER: [id number] MTDD
== END 2017-03-18 14:25 | disposition home or self-care (01) ==
LOC: ER 11:42
DX: J44.1 Chronic obstructive pulmonary disease with (acute) exacerbation (principal); J20.9 Acute bronchitis, unspecified; J44.0 Chronic obstructive pulmonary disease with (acute) lower respiratory infection; R06.02 Shortness of breath; I10 Essential (primary) hypertension; Z87.891 Personal history of nicotine dependence
CPT/HCPCS: 71010; 80053; 83880; 84484; 85027; 85610; 85730; 93005; 93010; 94640; 96374; 99284; J2930